=== PATIENT | male | born 1960 | race Caucasian/White ===

== ENCOUNTER 2023-08-14 14:19 | Outpatient (CLI) | payer MEDICARE, SELFPAY ==
--- NOTE | 2023-08-14 14:30 | XR_ITS ---
FINAL REPORT CLINICAL HISTORY: WORSENING LOW BACK PAIN COMPARISON: None FINDINGS: AP and lateral views of the lumbar spine were obtained. There is no prior exam for comparison. There is no acute fracture. There is grade 1 anterior spondylolisthesis of L4 on L5. Alignment is otherwise normal in the sagittal plane. Vertebral body height is preserved. There is multilevel degenerative disc disease most pronounced at L3-4 and L4-5. No acute paraspinal abnormality. IMPRESSION: Degenerative changes without acute osseous abnormality of the lumbar spine. Reviewed, Interpreted and Dictated by Hetal Alford MD Transcribed by Yuliana Baxter Authenticated and . [facility]
== END 2023-08-14 23:59 ==
LOC: RAD 14:25
PROVIDERS: PCP Family Medicine; Visit Provider Family Medicine
DX: M51.36 Other intervertebral disc degeneration, lumbar region (principal); M54.50 Low back pain, unspecified
CPT/HCPCS: 72100

== ENCOUNTER 2024-01-03 08:11 | Outpatient (CLI) | payer MEDICARE, SELFPAY ==
[2024-01-03 08:50] LABS: Basophils # 0.1 K/mm3 (0-0.2); Basophils % 1.4 % (0.1-2.0); Eosinophils # 0.5 K/mm3 (0.0-0.4); Hematocrit 43.9 % (42.0-52.0); Lymphocytes # 2.5 K/mm3 (0.7-4.5); Lymphocytes % 27.1 % (10-50); Mean Corpuscular HGB Conc 34.1 g/dL (31.8-35.4); Mean Corpuscular Hemoglobin 32.3 pg (27.0-31.2); Mean Corpuscular Volume 94.6 fl (80-94); Mean Platelet Volume 8.2 fl (7.4-10.4); Monocytes # 0.5 K/mm3 (0.1-1.0); Monocytes % 5.1 % (1.7-9.3); Neutrophils # 5.8 K/mm3 (1.8-7.8); Neutrophils % 61.5 % (37.0-80.0); Platelet Count 231 K/mm3 (142-424); Red Blood Count 4.64 M/mm3 (4.60-6.20); Red Cell Distribution Width 13.2 % (11.5-17.5); White Blood Count 9.4 K/mm3 (4.8-10.8)
[2024-01-03 09:26] LABS: Creatinine,Urine Random 134 mg/dL (Not Estab.); Microalbumin < 6.000 mg/L (0-16.7)
[2024-01-03 09:33] LABS: Alanine Aminotransferase 33 U/L (12-78); Albumin/Globulin Ratio 1.8 (1.1-1.8); Alkaline Phosphatase 80 U/L (38-126); Aspartate Amino Transferase 30 U/L (17-59); Bilirubin,Total 0.3 mg/dl (0.2-1.3); Blood Urea Nitrogen 21 mg/dl (9-20); Calcium 9.5 mg/dl (8.4-10.2); Carbon Dioxide 25 mmol/L (22.0-30.0); Chloride 108 mmol/L (98-107); Chol/HDL Ratio 4.9 (1-3.5); Cholesterol 141 mg/dl (140-200); Estimated Glomerular Filt Rate 85 ml/min (>60); GFR (African American) 102 ML/MIN (>60); Globulin 2.2 g/dL (1.3-3.2); Glucose 154 mg/dl (74-100); HDL Cholesterol 29 mg/dl (40-60); Sodium 140 mmol/L (136-145); Total Protein,Serum 6.2 g/dl (6.3-8.2); Triglycerides 225 mg/dl (30-150); VLDL Cholesterol 45 mg/dL (0-40)
[2024-01-03 09:44] LABS: Direct LDL Cholesterol 88.02 mg/dL (100-129)
[2024-01-03 11:45] LABS: Hemoglobin A1C 5.6 % (4.0-6.0)
== END 2024-01-03 23:59 | disposition home or self-care (01) ==
LOC: LAB 08:12
PROVIDERS: PCP Family Medicine; Visit Provider Family Medicine
DX: I10 Essential (primary) hypertension (principal); E11.9 Type 2 diabetes mellitus without complications; E78.2 Mixed hyperlipidemia
CPT/HCPCS: 36415; 80050; 80053; 80061; 82043; 82570; 83036; 84439; 84443; 85025

== ENCOUNTER 2024-12-09 11:03 | Outpatient (CLI) | payer MEDICARE, SELFPAY ==
--- OUTSIDE RECORDS SUMMARY | 2024-12-09 11:18 | XMS_ITS | Encounter Summary ---
Author Organization [employer] Address [address] [place] [address] Care Team Providers Care Optometric Technician Name Role Phone Mattie Rodriguez MD Primary Care Provider [phone] Kevin Terrell MD Primary Care Provider [phone] Reason for Visit * Reason Onset Date Comments Labs Only 01/02/2024 Encounter Details Date Type Department Care Team (Late st Contact Info) Description 01/02/2024 Telephone [facility] Primary Care - [address] [address] Mattie Rodriguez MD [address] [place] [address] Labs Only Social History Tobacco Use Types Packs/Day Years Used Date Smoking Tobacco: Every Day Smokeless Tobacco: Never Alcohol Use Standard Drinks/Week Comments Never 0 (1 standard drink = 0.6 oz pur e alcohol) PHQ-2 Answer Date Recorded Patient Health Questionnaire-2 Score 0 07/10/2023 Interpersonal Safety Answer Date Record ed Family or friends hurt you Not on file 07/04 Family or friends insult you Not on file Family or friends threaten you Not on file 0 07/04/2023 Family or friends scream or curse at you Not on file 07/04/2023 Housing Stability Answer Date Recorded Living situation today Not on file Living situation problems Not on file 2023 Food Insecurity Answer Date Recorded Food run out past 12 months Not on file 06/17 Food did not last past 12 months Not on file 07/04/2023 Employment Answer Date Recorded Help finding and keeping a job Not on file 0 07/04/2023 Family and Community Support Answer David e Recorded Help with Day to Day Activities Not on file 07/04/2023 Feeling Lonely or Isolated Not on file 07/04 Educational Attainment Answer Date Felipe rded Speak language other than [place] at home Not on file 07/04/2023 Want help with school or training Not on file 07/04/2023 Depression Answer Date Recorded PHQ-2 Risk Not on file 07/04/2023 Disabilities Answer Date Recorded Difficulty concentrating Not on file 024 Difficulty doing errands alone Not on file 0 07/04/2023 Substance Use Answer Date Recorded Used prescription meds for non-medical reasons N ot on file 07/04/2023 Used illegal drugs past 12 months Not on file 07/04/2023 Sex and Gender Information Value Date Recorded Sex Assigned at Male 07/09/2023 7:42 AM CORNER BRACE BLOCK MACHINE OPERATOR Legal Sex Male 8:55 AM CDT Gender Identity Male 07/09/2023 7:42 AM CORNER BRACE BLOCK MACHINE OPERATOR Sexual Orientation Straight 07/09/2023 7: 42 AM CORNER BRACE BLOCK MACHINE OPERATOR documented as of this encounter Miscellaneous Notes * Telephone Encounter - Ruddy Conley - 01/02/2024 11:34 AM EDT Pt called in stating states the lab orders faxed over did not contain his birthday so the hospital would not accept them, pt needed all lab orders from 07/10/2022 labs sent with his date of on them. Pt has been at hospital for 3 hours waiting on fax to be sent. Spoke with clinic via chat & they re-faxed them containing his birthday. [facility] Phone Number- [phone] * Telephone Encounter - Antolin Jenkins - 01/02/2024 9:53 AM EDT Next Visit: 01/08/2024 Last Visit: 07/10/2023 Mattie Rodriguez MD Caller Message (please include as much detail as possible)? fax lab orders [phone] [facility] Is follow up action needed? Explain: No Caller Name:AndrezBilly Relation to patient: Best Call Back OK to leave message on voicemail: documented in this encounter Plan of Treatment Not on file documented as of this encounter Visit Diagnoses Not on filedocumented in this encounter Care Teams Optometric Technician Relationship Specialty Start Date End Date Mattie Rodriguez MD [address] [place], [place] [id number] PCP - General Family Medicine 07/02/22 03/16/24 Kevin Terrell MD [address] [place] [address] PCP - General Family Medicine 05/06/24 documented as of this encounter
--- OUTSIDE RECORDS SUMMARY | 2024-12-09 11:18 | XMS_ITS | Referral Summary ---
Author Organization [employer] Address [address] [place] [address] Care Team Providers Care Signal Circuit Designer Name Role Phone Kevin Terrell MD Primary Care Provider [phone] Allergies No known active allergies Medications nystatin (MYCOSTATIN) 100,000 unit/mL suspension Take 5 mLs (500,000 Units total) by mouth 4 (four) times daily. 2 Active betamethasone dipropionate (DIPROLENE) 0.05 % ointment Apply topically 2 (two) times daily. 2 Active cetirizine (ZyrTEC) 10 MG tablet Take 1 tablet (10 mg total) by mouth nightly. Active magnesium 250 mg Tab tablet Take 2 tablets (500 mg total) by mouth daily. Active albuterol HFA (VENTOLIN HFA) 90 mcg/actuation inhalerIndications :Mild intermittent asthma without complication Inhale 1 puff by mouth via inhaler every 6 (six) hours as needed for wheezing. 1 Inhaler 4 Active losartan-hydroCHLO ROthiazide (HYZAAR) 100-25 mg per tabletIndications: Benign essential hypertension Take 1 tablet by mouth daily. 90 tablet 1 4 Active amLODIPine (NORVASC) 10 MG tabletIndications: Benign essential hypertension Take 1 tablet (10 mg total) by mouth daily. 90 tablet 1 4 Active Bystolic 10 mg tabletIndications: Benign essential hypertension Take 1 tablet (10 mg total) by mouth daily. 90 tablet 1 4 Active fenofibrate (TRICOR) 145 MG tabletIndications: Mixed hyperlipidemia Take 1 tablet (145 mg total) by mouth daily. 90 tablet 1 4 Active tadalafiL 2.5 mg tabIndications:Amuro ign prostatic hyperplasia without lower urinary tract symptoms Take 2.5 mg by mouth daily Take one tablet one hour before needed. . 90 tablet 1 4 Active omeprazole (PriLOSEC) 40 MG capsuleIndications :Gastroesophageal reflux disease without esophagitis Take 1 capsule (40 mg total) by mouth daily. 90 capsule 1 4 Active Active Problems Patient Care Coordination No te Formatting of this note migh t be different from the original. Payor suggested condition code for provider consideration: ICD 10 J431 ICD Description Panlobular emphysema DOS 07/02/2022 Provider Mattie Rodriguez ICD 10 E119 ICD Description Type 2 diabetes mellitus without complications DOS 01/08/2024 Provider Mattie Rodriguez Provider Actions- Review chart for above diagnosis If accurate diagnosis - Add condition to Visit Diagnosis for assessment and add to patient's Problem List. If inaccurate diagnosis - No further action needed, will age off payor reports. Problem Noted Date Diagnosed Date Encounter for general adult medical examination without abnormal findings 07/10/2023 07/10/2023 Benign essential hypertension 07/12/2021 Benign prostatic hyperplasia 07/12/2021 Chronic obstructive pulmonary disease 07/12/2021 Diabetes mellitus 07/12/2021 Gastroesophageal reflux disease without esophagi tis 07/12/2021 Hyperlipidemia 07/12/2021 Psoriasis 07/12/2021 Osteoarthritis 07/12/2021 Generalized osteoarthritis 12/14/2020 Photosensitivity dermatitis 12/14/2020 Allergic rhinitis 05/23/2020 Ischemic heart disease 11/07/2015 Mitral regurgitation 11/07/2015 Essential hypertension 11/07/2015 Hyperlipidemia 11/07/2015 Immunizations Name Administration Dates Next Due Covid-19 Vaccine MRNA (PF) 1 2yr+ ([employer])([id number]) 05/02/2021,09/27/2020,08/29/2020 Influenza Four-QIV PF 3YR+ ([id number]) 07/02/2022 Influenza Four-qiv Pf 03/11/2018 Tdap 03/18/2019 Social History Tobacco Use Types Packs/Day Years [...] Date Felipe rded Speak language other than Arabic at home Not on file 07/04/2023 Want [...] Sex Assigned at Male 07/09/2023 7:42 AM RESTAURANT KITCHEN MANAGER Legal Sex Male 8:55 AM CDT Gender Identity Male 07/09/2023 7:42 AM RESTAURANT KITCHEN MANAGER Sexual Orientation Straight 07/09/2023 7: 42 AM RESTAURANT KITCHEN MANAGER Last Filed Vital Signs Vital Sign Reading Time Taken Comments Blood Pressure 120/60 01/08/2024 12:08 PM EDT Pulse 63 01/08/2024 12:08 PM EDT Temperature 36.2 C (97.2 F) 07/10/2023 12:07 PM EST Respiratory Rate 16 01/08/2024 12:0 8 PM EDT Oxygen Saturation 99% 01/08/2024 12: 08 PM EDT Inhaled Oxygen Concentration - - Weight 106.2 kg (234 lb 3.2 oz) 024 12:08 PM EDT Height 170.2 cm (5' 7 ) 07/10/2023 12:0 7 PM EST Body Mass Index 36.68 07/10/2023 12:07 PM EST Plan of Treatment Not on file Procedures Procedure Name Priority Date/Time Associated Diagnosis Comments HEMOGLOBIN A1C Routine 06/21/2022 10:36 AM EST Hypertension, unspecified type Hyperlipidemia, unspecified hyperlipidemia type Prediabetes from Last 3 Months or Most Recently Relevant to Health Maintenance Results * (ABNORMAL) Hemoglobin A1c (06/21/2022 10:36 AM EST) Hemoglobin A1c 6.1(H) 4.8 - 5.6 % [facility] Comment: Prediabetes: 5.7 - 6.4 Diabetes: >6.4 Glycemic control for adults with diabetes: <7.0 Blood 06/21/2022 10:3 6 AM EST 06/21/2022 Narrative [facility] - 06/22/2022 3:06 AM EST Performed at: [facility] [id number] [employer] Office Instructor: Sam Richardson PhD, Phone: [phone] us Mattie Rodriguez MD LAB BLOOD ORDERABLES Final R esult [facility] from Last 3 Months or Most Recently Relevant to [place] [address] [facility] Care Teams Signal Circuit Designer Relationship Specialty Start Date End Date Kevin Terrell MD PCP - General Family Medicine 05/06/24
--- OUTSIDE RECORDS SUMMARY | 2024-12-09 11:18 | XMS_ITS | Clinical Summary ---
Author Organization [employer] Address [address] [place] [address] Care Team Providers Care Guyline Operator Name Role Phone Kevin Terrell MD Primary Care Provider [phone] Allergies No known active allergies Medications nystatin [...] tablet 1 4 Active tadalafiL 2.5 mg tabIndications:Mauro ign prostatic hyperplasia without lower urinary tract [...] Due Covid-19 Vaccine MRNA (PF) 1 2yr+ ([employer])([id number]) 05/02/2021,09/27/2020,08/29/2020 Influenza Four-QIV PF 3YR+ ([id number]) 07/02/2022 Influenza Four-qiv Pf 03/11/2018 Tdap 03/18/2019 Family History Medical History Relation Name Comments Heart disease Father Hypertension Mother Relation Name Status Comments Father Mother Social History Tobacco Use Types Packs/Day Years [...] Sex Assigned at Male 07/09/2023 7:42 AM CHANGE MANAGEMENT SPECIALIST Legal Sex Male 8:55 AM CDT Gender Identity Male 07/09/2023 7:42 AM CHANGE MANAGEMENT SPECIALIST Sexual Orientation Straight 07/09/2023 7: 42 AM CHANGE MANAGEMENT SPECIALIST Last Filed Vital Signs Vital Sign Reading [...] 07/10/2023 12:07 PM EST Plan of Treatment Health Maintenance Due Date Last Done Comments CT Colonography 1958 Diabetic Kidney Health Evalu ation (KED) 1958 FOBT/FIT 1958 Fit-DNA (Cologuard) 1958 Sigmoidoscopy 1958 Diabetic Eye Exam 1968 Diabetic foot exam 1968 Depression Screening (12+) 1970 Tobacco Cessation Counseling and Screening (12+) 1970 Hepatitis C Screening 1976 Pneumococcal 50+ years (1 of 2 - PCV) 1977 Statin - ASCVD Risk Prevention 1998 Shingles Vaccine (Zoster) (2 of 2) 08/09/20172016 Respiratory Syncytial Virus (RSV) Adult or (1 - Risk 60-74 years 1-dose series) 2018 Medicare Initial AWV [id number] 10/16/2021 Hemoglobin A1C 12/19/2022 06/21/2022 Abdominal Aortic Aneurysm (A AA) Screen 2023 COVID-19 VACCINE ( season) 2024 05/02/2021, 09/27/2020, 08/29/2020 Falls Risk Screening 06/17/2024 Influenza Vaccine (Season Ended) 2025 07/02/19 23 Colonoscopy 07/08/2027 07/08/2017 Colorectal Cancer Screening 07/08/2027 DTAP/TDAP/TD VACCINES (3 - T d or Tdap) 03/18/2029 03/18/2019, 06/14/2017 Procedures Procedure Name Priority Date/Time Associated Diagnosis [...] - 06/22/2022 3:06 AM EST Performed at: 01 - [facility] [address] [id number] Supervisory Lifeguard: Sam Richardson PhD, Phone: [phone] us Mattie Rodriguez MD LAB BLOOD ORDERABLES Final R esult [facility] from Last 3 Months or Most Recently Relevant to Health Maintenance [facility] Care Teams Guyline Operator Relationship Specialty Start Date End Date Kevin Terrell MD PCP - General Family Medicine 05/06/24
[2024-12-09 12:36] LABS: Basophils # 0.1 K/mm3 (0-0.2); Basophils % 0.7 % (0.1-2.0); Eosinophils # 0.4 Kmm3 (0.0-0.4); Eosinophils % 4.5 % (0.1-12.0); Hematocrit 41.1 % (42.0-52.0); Hemoglobin 14.3 g/dL (14.1-18.0); Immature Granulocytes # 0.05 10^3uL; Immature Granulocytes % 0.6 %; Lymphocytes # 2.4 K/mm3 (0.7-4.5); Lymphocytes % 28.6 % (10-50); Mean Corpuscular HGB Conc 34.8 g/dL (31.8-35.4); Mean Corpuscular Hemoglobin 31.4 pg (27.0-31.2); Mean Corpuscular Volume 90.1 fl (80-94); Mean Platelet Volume 10.3 fl (7.4-10.4); Monocytes # 0.6 K/mm3 (0.1-1.0); Neutrophils # 4.9 K/mm3 (1.8-7.8); Neutrophils % 58.6 % (37.0-80.0); Nucleated Red Blood Cells # 0 10^3/uL; Nucleated Red Blood Cells % 0 %; Platelet Count 240 K/mm3 (142-424); Red Blood Count 4.56 M/mm3 (4.60-6.20); Red Cell Distribution Width 11.9 % (11.5-17.5); Red Cell Distribution Width-SD 39.2 fL; White Blood Count 8.4 K/mm3 (4.8-10.8)
[2024-12-09 12:45] LABS: Hemoglobin A1C 7.3 % (4.0-6.0)
[2024-12-09 13:16] LABS: Albumin Level 4.4 g/dl (3.5-5.0); Chloride 100 mmol/L (98-107); Potassium 4.1 mmoL/L (3.5-5.1); Sodium 138 mmol/L (136-145)
[2024-12-09 13:18] LABS: Alanine Aminotransferase 37 U/L (12-78); Anion Gap 16.1 mEq/L (5-15); Aspartate Amino Transferase 30 U/L (17-59); Blood Urea Nitrogen 25 mg/dl (9-20); Carbon Dioxide 26 mmol/L (22.0-30.0); Estimated Glomerular Filt Rate 84 ml/min (>60); GFR (African American) 102 ML/MIN (>60)
[2024-12-09 13:19] LABS: Albumin/Globulin Ratio 1.8 (1.1-1.8); Alkaline Phosphatase 75 U/L (38-126); Bilirubin,Total 0.3 mg/dl (0.2-1.3); Calcium 9.5 mg/dl (8.4-10.2); Chol/HDL Ratio 4.1 (1-3.5); Cholesterol 120 mg/dl (140-200); Globulin 2.4 g/dL (1.3-3.2); Glucose 131 mg/dl (74-100); HDL Cholesterol 29 mg/dl (40-60); Total Protein,Serum 6.8 g/dl (6.3-8.2); Triglycerides 216 mg/dl (30-150); VLDL Cholesterol 43 mg/dL (0-40)
[2024-12-09 13:31] LABS: Direct LDL Cholesterol 61.12 mg/dL (100-129)
[2024-12-09 13:33] LABS: 25-OH Vitamin D, Total 42.5 ng/mL (30-100)
[2024-12-09 14:58] LABS: Vitamin B12 477 pg/mL (239-931)
== END 2024-12-09 23:59 | disposition home or self-care (01) ==
LOC: LAB 11:04
PROVIDERS: PCP Family Medicine; Visit Provider Family Medicine
DX: E55.9 Vitamin D deficiency, unspecified (principal); E53.8 Deficiency of other specified B group vitamins; E78.2 Mixed hyperlipidemia; I10 Essential (primary) hypertension; R73.03 Prediabetes
CPT/HCPCS: 36415; 80053; 80061; 82306; 82607; 83036; 85025

== ENCOUNTER 2025-06-09 09:19 | Outpatient (CLI) | payer MEDICARE, SELFPAY ==
--- OUTSIDE RECORDS SUMMARY | 2025-06-09 09:21 | XMS_ITS | Clinical Summary ---
Author Organization [facility] Address [address] [place] [address] Care Team Providers Care Exhaust Machine Operator Name Role Phone Kevin Terrell MD Primary Care Provider + Allergies No known active allergies Medications [place]-3 1000 MG capsule Take 1 capsule by mouth Daily. Active Cholecalciferol (VITAMIN D) 2000 UNITS capsule Take 2,000 Int'l Units by mouth daily. Active Collagen 500 MG capsule Take by mouth. Activ e cetirizine (zyrTEC) 10 MG tablet Take 1 tablet by mouth Daily. Active MAGNESIUM PO Take 500 mg by mouth Daily. Active TURMERIC PO Take by mouth. Act patricia Collagen-Vitamin C-Biotin (COLLAGEN PO) Take by mouth. Activ e ipratropium-albute rol (COMBIVENT RESPIMAT) 20-100 MCG/ACT inhaler Inhale 1 puff 4 (Four) Times a Day As Needed for Wheezing. Active amLODIPine (NORVASC) 10 MG tabletIndications: Essential hypertension,Coron jessica artery disease involving council coronary artery of council heart without angina pectoris Take 1 tablet by mouth Daily. 90 tablet 3 12/18/19 25 Active fenofibrate (TRICOR) 145 MG tabletIndications: Mixed hyperlipidemia Take 1 tablet by mouth Daily. 90 tablet 3 12/18/19 25 Active ipratropium-albute rol (Combivent Respimat) 20-100 MCG/ACT inhalerIndications :Chronic obstructive pulmonary disease, unspecified COPD type Inhale 1 puff 4 (Four) Times a Day As Needed for Wheezing. 3 each 3 12/18/19 25 Active losartan-hydrochlo rothiazide (HYZAAR) 100-25 MG per tabletIndications: Essential hypertension,Coron jessica artery disease involving council coronary artery of council heart without angina pectoris Take 1 tablet by mouth Daily. 90 tablet 3 12/18/19 25 Active nebivolol (Bystolic) 10 MG tabletIndications: Essential hypertension,Coron jessica artery disease involving council coronary artery of council heart without angina pectoris Take 1 tablet by mouth Daily. 90 tablet 3 12/18/19 25 Active omeprazole (priLOSEC) 40 MG capsuleIndications :Gastroesophageal reflux disease without esophagitis Take 1 capsule by mouth Daily. 90 capsule 3 12/18/19 25 Active pravastatin (PRAVACHOL) 40 MG tabletIndications: Coronary artery disease involving council coronary artery of council heart without angina pectoris Take 1 tablet by mouth Every Night. 90 tablet 3 12/18/19 25 Active betamethasone valerate (VALISONE) 0.1 % ointmentIndication s:Hand dermatitis Apply 1 Application topically to the appropriate area as directed 2 (Two) Times a Day. 15 g 2 12/18/19 25 Active Active Problems Problem Noted Date Diagnosed Date Prediabetes 12/17/2024 Assessment & Plan (12/17/2024 1:01 PM EDT): Orders: Hemoglobin A1c; Future Glucose, Random; Future Ischemic heart disease 11/07/2015 Essential hypertension 11/07/2015 Assessment & Plan (12/17/2024 1:01 PM EDT): Hypertension is stable and controlled Continue current treatment regimen. Blood pressure will be reassessed in 6 months. Orders: POC Albumin/Creatinine Ratio Urine amLODIPine (NORVASC) 10 MG tablet; Take 1 tablet by mouth Daily. losartan-hydrochlorothiazide (HYZAAR) 100-25 MG per tablet; Take 1 tablet by mouth Daily. nebivolol (Bystolic) 10 MG tablet; Take 1 tablet by mouth Daily. Hyperlipidemia 11/07/2015 Assessment & Plan (12/17/2024 1:01 PM EDT): {Hyperlipidemia A/P Block (Optional):[id number]} Orders: fenofibrate (TRICOR) 145 MG tablet; Take 1 tablet by mouth Daily. Lipid Panel; Future Mitral regurgitation 11/07/2015 Immunizations Immunization Administration Dates Next Due Fluzone (or Fluarix & Flulaval for VFC) >6mos ,03/11/2018 Tdap 03/18/2019 Family History Medical History Relation Name Comments No Known Problems Brother Heart attack Father Hypertension Father Heart disease Mother Liver disease Mother Valvular heart disease Mother Relation Name Status Comments Brother Father Heart attack in his 40's Mother Alive Social History Tobacco Use Types Packs/Day Years Used Date Smoking Tobacco: Former Cigarettes Q uit: 11/06/1996 Smokeless Tobacco: Current Tobacco Cessation:Ready to Q uit: Not Asked; Counseling Given: Not Answered Comments:Nicotine pouches Alcohol Use Standard Drinks/Week Comments Yes 0 (1 standard drink = 0.6 oz pur e alcohol) social PHQ-2 Answer Date Recorded Patient Health Questionnaire-2 Score 0 12/17/2024 Sex and Gender Information Value Date Recorded Sex Assigned at Male 12/16/2024 11:27 AM EDT Legal Sex Male 3:40 PM EDT Gender Identity Not on file Sexual Orientation Straight 12/16/2024 11 :27 AM EDT Last Filed Vital Signs Vital Sign Reading Time Taken Comments Blood Pressure 140/60 12/17/2024 12:25 PM EDT Pulse 57 12/17/2024 12:25 PM EDT Temperature 36.8 C (98.2 F) 12/17/2024 12:25 PM EDT Respiratory Rate 20 12/17/2024 12:25 PM EDT Oxygen Saturation 98% 12/17/2024 12:25 PM EDT Inhaled Oxygen Concentration - - Weight 106 kg (232 lb 12.8 oz) 12/17/2024 12:25 PM EDT Height 170.2 cm (5' 7 ) 12/17/2024 12:25 PM EDT Body Mass Index 36.46 12/17/2024 12:25 PM EDT Plan of Treatment Upcoming Encounters Date Type Department Care Team (Late st Contact Info) Description 06/21/2025 11:45 AM EST Office Visit [facility] [address] [phone] Kevin Terrell MD [address] [address] 12/21/2025 2:15 PM EDT Office Visit [facility] [address], [place] [address] Kevin Terrell MD [address], [place] [address] Health Maintenance Due Date Last Done Comments DIABETIC EYE EXAM 1968 DIABETIC FOOT EXAM 1968 Pneumococcal Vaccine 50+ (1 of 2 - PCV) 1977 COLOGUARD 2003 COLON CANCER SCREENING 5 YEA R SIGMOIDOSCOPY 2003 COLONOSCOPY 2003 [address] CANCER SCREENING 2003 CT COLONOGRAPHY 2003 FECAL OCCULT BLOOD TEST 2003 FIT Testing (1 year) 2003 ZOSTER VACCINE (1 of 2) 2008 AAA SCREEN ONCE 2023 HEPATITIS C SCREENING 05/20/2024 INFLUENZA VACCINE 01/15/2025 07/02/2022, 03/11/2018 COVID-19 Vaccine ( season) 2025 05/02/2021, 09/27/2020, 08/29/2020 HEMOGLOBIN A1C 03/18/2025 09/16/2024, 06/21/2022 LIPID PANEL 09/23/2025 09/23/2024 ANNUAL WELLNESS VISIT 12/17/2025 12/17/2024, 025 URINE MICROALBUMIN-CREATININ E RATIO (uACR) 12/17/2025 12/17/2024 TDAP/TD VACCINES (2 - Td or Tdap) 03/18/2029 019 Procedures Procedure Name Priority Date/Time Associated Diagnosis Comments POC ALBUMIN/CREATININE RATIO Routine 12/17/2024 1:58 PM EDT Essential hypertension LIPID PANEL Routine 09/23/2024 12:02 PM EDT Mixed hyperlipidemia HEMOGLOBIN A1C Routine 09/16/2024 Prediabetes from Last 3 Months or Most Recently Relevant to Health Maintenance Results * POC Albumin/Creatinine Ratio Urine (12/17/2024 1:58 PM EDT) POC ALBUMIN, URINE 10 mg/L POC CREATININE, URINE 100 mg/dL POC Urine Albumin Creatinine Ratio < 30 mg/g <30 Comment:normal Lot Number [id number] Expiration Date 10/14/2025 Urine 12/17/2024 1:58 PM EDT Kevin Terrell MD POINT OF CARE TEST ORDER LEOBARDO Final Result * Lipid Panel (09/23/2024 12:02 PM EDT) Blood Kevin Terrell MD LAB BLOOD ORDERABLES Fin al Result Performing Organization Address City/[facility]/ZIP Co de Phone Number [facility] ([facility] [address] [place] [address], [place] [phone] * Hemoglobin A1c (09/16/2024) Blood Kevin Terrell MD LAB BLOOD ORDERABLES Fin al Result [facility] ([facility]) [address] [place] [address], [place] [phone] from Last 3 Months or Most Recently Relevant to Health Maintenance Insurance [facility] PPO Care Teams Exhaust Machine Operator Relationship Specialty Start Date End Date Kevin Terrell MD [address] [place] [address] PCP - General Family Medicine 06/18/24
[2025-06-09 09:59] LABS: Hemoglobin A1C 5.8 % (4.0-6.0)
[2025-06-09 10:43] LABS: Cholesterol 121 mg/dl (140-200); HDL Cholesterol 38 mg/dl (40-60); Triglycerides 208 mg/dl (30-150)
== END 2025-06-09 23:59 | disposition home or self-care (01) ==
LOC: LAB 09:20
PROVIDERS: PCP Family Medicine; Visit Provider Family Medicine
DX: I25.10 Atherosclerotic heart disease of native coronary artery without angina pectoris (principal); E78.2 Mixed hyperlipidemia; R73.03 Prediabetes
CPT/HCPCS: 36415; 80061; 82947; 83036